=== PATIENT | female | born 2000 | race Hispanic/Latino ===

== ENCOUNTER 2024-02-18 10:04 | Observation (INO) | payer BC, MEDICAID ==
[~2024-02-18] VITALS: Ht 167.6 cm; Wt 140.6 kg
[2024-02-18 10:06] VITALS: BP 150/78; PULSE 83; RESP 18
== END 2024-02-18 12:15 | disposition home or self-care (01) ==
LOC: EDH 10:04 → LDH 10:21
PROVIDERS: ADMIT Obstetrics & Gynecology; ATTEND Obstetrics & Gynecology
DX: O24.419 Gestational diabetes mellitus in pregnancy, unspecified control (principal); Z3A.35 35 weeks gestation of pregnancy
CPT/HCPCS: 76819; G0378 ×2; G0379; 59025

== ENCOUNTER 2024-03-03 09:17 | Observation (INO) | payer BC, MEDICAID | END 2024-03-03 11:20 | disposition home or self-care (01) | LOC: LDH 09:29 | PROVIDERS: ADMIT Obstetrics & Gynecology; ATTEND Obstetrics & Gynecology | DX: O24.419 Gestational diabetes mellitus in pregnancy, unspecified control (principal); Z3A.37 37 weeks gestation of pregnancy | CPT/HCPCS: 76819; G0378 ×2; G0379; 59025 ==